=== PATIENT | female | born 1995 | race Caucasian/White ===

== ENCOUNTER 2022-12-01 21:08 | Emergency (ER) | payer SELFPAY ==
[2022-12-01] MEDS ORDERED: Ondansetron ODT 4 MG TAB ONE (21:47)
[2022-12-01 22:01] LABS: Bilirubin Negative (Negative); Blood, Urine Negative (Negative); Clarity Clear (Clear); Glucose, Urine (Dipstick) Negative (Negative); Ketone, Urine Trace mg/dL (Negative); Leukocyte Negative (Negative); Nitrite Negative (Negative); Protein, Urine (Dipstick) Negative (Neg-Trace); Urobilinogen 0.2 mg/dL (Less than 2)
[2022-12-01 22:03] LABS: Specific Gravity, Urine 1.004 (1.002-1.036)
[2022-12-01] MEDS ORDERED: traMADol HCl 50 MG TAB ONE (22:27)
== END 2022-12-01 22:45 | disposition home or self-care (01) ==
LOC: NAV ERS 21:08
DX: U07.1 COVID-19 (principal); R51.9 Headache, unspecified; R05.9 Cough, unspecified; R09.81 Nasal congestion; R11.2 Nausea with vomiting, unspecified; F17.210 Nicotine dependence, cigarettes, uncomplicated; Z20.822 Contact with and (suspected) exposure to COVID-19
CPT/HCPCS: 81003; 87804; 99284; Q0162; U0003; U0005